=== PATIENT | male | born 1940 | race Caucasian/White ===

== ENCOUNTER → 2023-04-03 09:51 | Outpatient (REF) | payer MEDICARE, OTHER, SELFPAY | LOC: WOUND 09:51 | PROVIDERS: ATTENDING PHYSICIAN Surgery; REFERRING PHYSICIAN Family Medicine | DX: L97.812 Non-pressure chronic ulcer of other part of right lower leg with fat layer exposed (principal); T14.8XXA Other injury of unspecified body region, initial encounter; I87.2 Venous insufficiency (chronic) (peripheral); I50.32 Chronic diastolic (congestive) heart failure; I10 Essential (primary) hypertension; X58.XXXA Exposure to other specified factors, initial encounter | CPT/HCPCS: 11042 ==

== ENCOUNTER → 2023-05-02 14:57 | Outpatient (REF) | payer MEDICARE, OTHER, SELFPAY | LOC: WOUND 14:57 | PROVIDERS: ATTENDING PHYSICIAN Surgery Plastic and Reconstructive Surgery; REFERRING PHYSICIAN Family Medicine | DX: L97.812 Non-pressure chronic ulcer of other part of right lower leg with fat layer exposed (principal); I87.2 Venous insufficiency (chronic) (peripheral) | CPT/HCPCS: 11042; 11045; 99213 ==

== ENCOUNTER → 2023-05-16 13:47 | Outpatient (REF) | payer MEDICARE, OTHER, SELFPAY | LOC: WOUND 13:47 | PROVIDERS: ATTENDING PHYSICIAN Surgery Plastic and Reconstructive Surgery; REFERRING PHYSICIAN Family Medicine | DX: L97.812 Non-pressure chronic ulcer of other part of right lower leg with fat layer exposed (principal); I87.2 Venous insufficiency (chronic) (peripheral); I50.32 Chronic diastolic (congestive) heart failure; I10 Essential (primary) hypertension; Z79.01 Long term (current) use of anticoagulants; I48.0 Paroxysmal atrial fibrillation | CPT/HCPCS: 11042; 99213 ==

== ENCOUNTER → 2023-06-15 09:48 | Outpatient (REF) | payer MEDICARE, OTHER, SELFPAY | LOC: WOUND 09:48 | PROVIDERS: ATTENDING PHYSICIAN Surgery; REFERRING PHYSICIAN Family Medicine | DX: L97.812 Non-pressure chronic ulcer of other part of right lower leg with fat layer exposed (principal); T14.8XXA Other injury of unspecified body region, initial encounter; I87.2 Venous insufficiency (chronic) (peripheral); I50.32 Chronic diastolic (congestive) heart failure; I10 Essential (primary) hypertension; Z79.01 Long term (current) use of anticoagulants; I48.0 Paroxysmal atrial fibrillation; X58.XXXA Exposure to other specified factors, initial encounter | CPT/HCPCS: 97597 ==

== ENCOUNTER → 2023-07-20 10:21 | Outpatient (REF) | payer MEDICARE, OTHER, SELFPAY | LOC: WOUND 10:21 | PROVIDERS: ATTENDING PHYSICIAN Surgery; FAMILY PHYSICIAN Family Medicine | DX: I87.2 Venous insufficiency (chronic) (peripheral) (principal); L97.812 Non-pressure chronic ulcer of other part of right lower leg with fat layer exposed; T14.8XXA Other injury of unspecified body region, initial encounter; I50.32 Chronic diastolic (congestive) heart failure; Z79.01 Long term (current) use of anticoagulants; I48.0 Paroxysmal atrial fibrillation; X58.XXXA Exposure to other specified factors, initial encounter; I11.0 Hypertensive heart disease with heart failure | CPT/HCPCS: 97597 ==

== ENCOUNTER → 2023-08-22 10:56 | Outpatient (REF) | payer MEDICARE, OTHER, SELFPAY | LOC: WOUND 10:56 | PROVIDERS: ATTENDING PHYSICIAN Surgery; FAMILY PHYSICIAN Family Medicine | DX: L97.812 Non-pressure chronic ulcer of other part of right lower leg with fat layer exposed (principal); I87.2 Venous insufficiency (chronic) (peripheral); I50.32 Chronic diastolic (congestive) heart failure; I10 Essential (primary) hypertension; I48.20 Chronic atrial fibrillation, unspecified; S80.811A Abrasion, right lower leg, initial encounter; W19.XXXA Unspecified fall, initial encounter | CPT/HCPCS: 99212 ==

== ENCOUNTER → 2023-08-22 11:14 | Outpatient (REF) | payer MEDICARE, OTHER, SELFPAY ==
[2023-08-22 12:01] LABS: INR 4.91; PT 45.9 Sec (11.4-14.6)
== END ==
LOC: REG 11:14
PROVIDERS: ATTENDING PHYSICIAN Family Medicine; OTHER PHYSICIAN Internal Medicine Cardiovascular Disease
DX: I48.21 Permanent atrial fibrillation (principal)
CPT/HCPCS: 36415; 85610

== ENCOUNTER → 2023-08-25 09:55 | Outpatient (REF) | payer MEDICARE, OTHER, SELFPAY ==
[2023-08-25 10:46] LABS: INR 3.99
== END ==
LOC: REG 09:55
PROVIDERS: ATTENDING PHYSICIAN Internal Medicine Cardiovascular Disease; FAMILY PHYSICIAN Family Medicine
DX: Z79.01 Long term (current) use of anticoagulants (principal); I48.0 Paroxysmal atrial fibrillation
CPT/HCPCS: 36415; 85610

== ENCOUNTER → 2023-09-01 09:35 | Outpatient (REF) | payer MEDICARE, OTHER, SELFPAY ==
[2023-09-01 10:28] LABS: INR 2.09; PT 23.3 Sec (11.4-14.6)
== END ==
LOC: REG 09:35
PROVIDERS: ATTENDING PHYSICIAN Internal Medicine Cardiovascular Disease; FAMILY PHYSICIAN Family Medicine
DX: Z79.01 Long term (current) use of anticoagulants (principal); I48.0 Paroxysmal atrial fibrillation
CPT/HCPCS: 36415; 85610

== ENCOUNTER → 2024-01-16 13:36 | Outpatient (REF) | payer MEDICARE, OTHER, SELFPAY | LOC: HWRCS 13:36 | PROVIDERS: ATTENDING PHYSICIAN Physician Assistant; FAMILY PHYSICIAN Family Medicine | DX: I48.0 Paroxysmal atrial fibrillation (principal); I50.32 Chronic diastolic (congestive) heart failure | CPT/HCPCS: 93306 ==